=== PATIENT | female | born 1975 | race Caucasian/White ===

== ENCOUNTER → 2016-10-03 | Outpatient (CLI) | payer BC ==
--- NOTE | 2016-10-03 12:56 | KCIC ---
PROCEDURE MR of the right hip HISTORY Right hip pain, worsening. Pain with standing. COMPARISON None FINDINGS No bone lesion or acute fracture. No acute marrow edema. No femoral head osteonecrosis. The no significant joint effusion. No advanced primary osteoarthritis. No evidence of labral tear or paralabral cyst. Diagnostically limited large [id number] coronal survey sequence demonstrates no acute findings at the contralateral hip. The gluteus minimus and gluteus medius tendon attachments are intact. Hamstring tendon attachment intact. Iliopsoas tendon intact. Muscle tissue unremarkable. No acute soft tissue edema or fluid collection. IMPRESSION No significant abnormality. Electronically signed by: Joey Manning MD (Oct 03, 2016 12:55:10)
--- NOTE | 2016-10-03 14:15 | KCIC ---
PROCEDURE Left lower extremity venous Doppler ultrasound. HISTORY Increasing edema and pain in the left extremity COMPARISON None FINDINGS Multiple grayscale, color, duplex spectral analysis waveform images of the left lower extremity veins are submitted. There is normal compression and color flow from the left common femoral to the popliteal veins, normal phasicity. There is normal color flow of the proximal left profunda femoris vein and greater saphenous vein. There is normal color flow of segments of the left calf veins. IMPRESSION There is no evidence of deep venous thrombosis from the left common femoral to popliteal veins. Electronically signed by: Mark Marinelli MD (Oct 03, 2016 14:14:27)
== END | disposition home or self-care (01) ==
LOC: KCIC MRI 12:00
PROVIDERS: ATTEND Nurse Practitioner Family
DX: M25.551 Pain in right hip (principal); R60.0 Localized edema
CPT/HCPCS: 73721; 93971

== ENCOUNTER → 2017-09-11 | Outpatient (CLI) | payer BC | END | disposition home or self-care (01) | LOC: KCIC MRI 09:05 | DX: M75.81 Other shoulder lesions, right shoulder (principal) | CPT/HCPCS: 73221 ==

== ENCOUNTER → 2018-08-04 | Outpatient (CLI) | payer BC ==
--- NOTE | 2018-08-05 09:30 | KCIC ---
MRI of the thoracic spine without contrast 08/04/2018 CLINICAL HISTORY: Mid back pain with decreased range of motion. TECHNIQUE: Unenhanced T1-weighted, T2-weighted and inversion recovery sagittal and T1-weighted and T2-weighted axial images of the thoracic spine were obtained. T2-weighted sagittal images of the cervical, thoracic and lumbar spine were obtained for localization purposes. FINDINGS: Minimal S-shaped curvature of the thoracolumbar spine is seen. Incomplete segmentation is seen involving the T11 and T12 vertebrae, anteriorly. A hypoplastic disc is seen at this level. Degenerative signal changes are seen involving all of the disks of the thoracic spine. The marrow signal of the visualized bony structures is within normal limits. The thoracic spinal cord is normal morphology, position, and signal characteristics. A 1.8 cm rounded high signal intensity lesion is involving the right lobe of the liver on the T2-weighted images. This likely represents a hepatic cyst. On the axial images throughout the thoracic spine, mild degenerative changes are seen consisting of minimal generalized disc bulges and degenerative changes involving the facet joints. These findings do not result in significant central spinal canal or neural foraminal stenosis at any level. No focal disc herniation is seen. IMPRESSION: Mild degenerative changes are seen involving the thoracic spine as outlined above. These findings do not result in significant central spinal canal or neural foraminal stenosis at any level. Electronically signed by: Gabe Beaver MD (08/05/2018 9:25 AM) [facility]-[id number]
== END | disposition home or self-care (01) ==
LOC: KCIC MRI 17:23
PROVIDERS: ATTEND Nurse Practitioner Family
DX: M47.24 Other spondylosis with radiculopathy, thoracic region (principal); K76.89 Other specified diseases of liver
CPT/HCPCS: 72146

== ENCOUNTER → 2018-11-06 | Outpatient (CLI) | payer BC ==
--- NOTE | 2018-11-06 16:24 | KCIC ---
MRI of the cervical spine without contrast 11/06/2018 CLINICAL HISTORY: Bilateral hand weakness with left greater than right radiculopathy. TECHNIQUE: Unenhanced T1-weighted, T2-weighted and inversion recovery sagittal and gradient echo and T2-weighted axial images of the cervical spine were obtained. FINDINGS: Minimal lateral curvature of the cervical spine is seen convex to the left. There is slight reversal of normal cervical lordosis. Degenerative signal changes are seen involving all of the disks of the cervical spine. Loss of height of the C5-6 and C6-7 discs is noted. The marrow signal of the visualized bony structures is within normal limits. No area of abnormal signal intensity is seen involving the cervical spinal cord. At the C2-3 and C3-4 disc spaces there are minimal generalized disc bulges. Degenerative changes are seen involving the uncovertebral and facet joints bilaterally. These findings do not result in significant central spinal canal or neural foraminal stenosis. At the C4-5 disc space there is a minimal generalized disc bulge. Degenerative changes are seen involving the uncovertebral and facet joints, right greater than left. These findings do not result in significant central spinal canal or neural foraminal stenosis. At the C5-6 disc space there is a mild generalized disc bulge. This is eccentric to the right. Degenerative changes are seen involving the uncovertebral and facet joints, right greater than left. These findings when combined do not result in significant central spinal canal stenosis. Mild right neural foraminal stenosis is seen. The left neural foramen is patent. At the C6-7 disc space there is a mild to moderate generalized disc bulge. Degenerative changes are seen involving the uncovertebral and facet joints, left greater than right. These findings efface the anterior CSF without resulting in significant central spinal canal stenosis. Very mild left neural foraminal stenosis is seen. The right neural foramen is patent. At the C7-T1 disc space there is a minimal generalized disc bulge. Degenerative changes are seen involving the facet joints bilaterally. These findings when combined do not result in significant central spinal canal or neural foraminal stenosis. IMPRESSION: Degenerative changes are seen throughout the cervical spine. These findings do not result in significant central spinal canal stenosis at any level. Mild right neural foraminal stenosis is seen at C5-6. Very mild left neural foraminal stenosis is seen at C6-7. Electronically signed by: Gabe Beaver MD (11/06/2018 4:21 PM) [email or web address]
== END | disposition home or self-care (01) ==
LOC: KCIC MRI 15:29
PROVIDERS: ATTEND Psychiatry & Neurology Neurology
DX: M47.22 Other spondylosis with radiculopathy, cervical region (principal); M48.02 Spinal stenosis, cervical region
CPT/HCPCS: 72141

== ENCOUNTER → 2020-04-11 | Outpatient (CLI) | payer BC ==
--- NOTE | 2020-04-11 14:34 | KCIC ---
Study: MR cervical spine without contrast INDICATION: Headache. Cervicalgia. COMPARISON: 11/06/2018 TECHNIQUE: Multiplanar MR imaging of the cervical spine performed without the use of intravenous contrast. FINDINGS: No focal cord signal abnormality. The visualized posterior fossa contents are unremarkable. No acute or aggressive marrow signal abnormality. Redemonstrated straightening of cervical lordosis with mild disc space narrowing at C5-C6 and C6-C7. Unremarkable paraspinous soft tissues. Vertebral artery flow voids are maintained. C1-C2: The region of the foramen magnum is patent. C2-C3: Minimal uncovertebral joint hypertrophy on the right. No advanced facet degeneration or significant disc bulge. The central canal and neural foramina are patent. C3-C4: Mild uncovertebral joint hypertrophy and facet degeneration. No significant disc bulge. Patent central canal and neural foramina. C4-C5: Redemonstrated right more so than left uncovertebral joint hypertrophy, mild left more so than right facet degeneration and mild generalized disc bulge eccentric to the right. The central canal is patent as is the left neural foramen. Unchanged mild right neural foraminal stenosis. C5-C6: Right eccentric disc osteophyte complex, right more so than left uncovertebral joint hypertrophy and mild facet degeneration. The disc osteophyte complex is slightly increased in size with resultant slightly greater contact and flattening of the ventral right hemicord. The central canal remains patent. Similar moderate right neural foraminal stenosis. The left neural foramen is patent. C6-C7: Similar size of a diffuse disc osteophyte complex. Redemonstrated left more so than right uncovertebral joint hypertrophy though slightly worsened on the left. Unchanged mild bilateral facet degeneration. The central canal is patent. Left neural foraminal stenosis is now moderate. The right neural foramen is patent. C7-T1: Normal generalized disc bulge left more so than right facet degeneration that is mild. The central canal is patent as are the neural foramina. T1-T2 through T3-T4: Patent central canal and neural foramina. IMPRESSION: 1. As before, degenerative changes are greatest at C5-C6 and C6-C7. At C5-C6, a right eccentric disc osteophyte complex has slightly increased in size with increasing but still mild right ventral hemicord contact and flattening. No cord signal abnormality and the canal remains patent. At C6-C7, a diffuse disc osteophyte complex has not significantly changed and the central canal is patent. 2. In the setting of uncovertebral joint hypertrophy and facet degeneration, similar moderate neural foraminal stenosis on the right at C5-C6. Neural foraminal stenosis on the left at C6-C7 has slightly progressed and is now moderate as well. Mild degenerative changes elsewhere have not significantly changed. Electronically signed by: HEATHER DOBSON MD (04/11/2020 2:31 PM) [id number]
== END ==
LOC: KCIC MRI 12:26
PROVIDERS: ATTEND Family Medicine
DX: M47.813 Spondylosis without myelopathy or radiculopathy, cervicothoracic region (principal); M48.02 Spinal stenosis, cervical region; M25.78 Osteophyte, vertebrae; M62.48 Contracture of muscle, other site
CPT/HCPCS: 72141

== ENCOUNTER → 2020-05-02 | Outpatient (CLI) | payer BC ==
[~2020-05-02] MED LIST: ACET325T9 PO; IBUP-1060 PO; IOHEXOL 180 MG/ML 10 ML VIAL. ONE; MAGN1TAB PO; PANT40TA77 PO; methylPREDNISolone ACETATE 40 MG/ML VIAL. ONE; methylPREDNISolone ACETATE 80 MG/ML VIAL. ONE
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
== END | disposition home or self-care (01) ==
LOC: PNCL 13:22
PROVIDERS: ATTEND Anesthesiology
DX: M54.2 Cervicalgia (principal); M79.601 Pain in right arm; K21.9 Gastro-esophageal reflux disease without esophagitis; G43.909 Migraine, unspecified, not intractable, without status migrainosus; Z79.899 Other long term (current) drug therapy; Z90.710 Acquired absence of both cervix and uterus; Z98.890 Other specified postprocedural states; Z88.8 Allergy status to other drugs, medicaments and biological substances; Z82.49 Family history of ischemic heart disease and other diseases of the circulatory system; Z83.3 Family history of diabetes mellitus
CPT/HCPCS: 62321; J1030; J1040; Q9965

== ENCOUNTER → 2020-10-17 | Outpatient (CLI) | payer BC ==
[~2020-10-17] MED LIST changes: -IOHEXOL 180 MG/ML 10 ML VIAL. ONE; -methylPREDNISolone ACETATE 40 MG/ML VIAL. ONE; -methylPREDNISolone ACETATE 80 MG/ML VIAL. ONE
--- NOTE | 2020-10-17 14:42 | KCIC ---
EXAMINATION: MRI LEFT SHOULDER WITHOUT IV CONTRAST CLINICAL HISTORY: Chronic bilateral shoulder pain TECHNIQUE: Multiplanar multisequential images obtained through the shoulder without intravenous contr ast. COMPARISON: None FINDINGS: TENDONS: - Supraspinatus: Mild tendinosis without definite tear. - Infraspinatus: Mild tendinosis without tear. - Subscapularis: Within normal limits. - Teres Minor: Within normal limits. - Biceps Tendon: The long head biceps tendon is intact and appropriately located. MUSCLES: Muscle bulk and signal intensity are within normal limits. LABRUM: Posterior and inferior labral degeneration with minimal degenerative tearing in the inferior labrum. GLENOHUMERAL JOINT: - Joint Fluid: No joint effusion or synovitis. - Cartilage: Within normal limits. ACROMIOCLAVICULAR JOINT: Minimal degenerative changes. BONES/MARROW: No evidence of acute fracture or suspicious marrow replacing process. OTHER: Mild thickening of the subacromial/subdeltoid bursa. IMPRESSION: Mild rotator cuff tendinosis without full-thickness tear. Electronically signed by: Ney Stout DO (10/17/2020 2:39 PM) [id number]
--- NOTE | 2020-10-17 14:42 | KCIC ---
EXAMINATION: MRI RIGHT SHOULDER WITHOUT IV CONTRAST CLINICAL HISTORY: Chronic bilateral shoulder pain concerning for rotator cuff pathology TECHNIQUE: Multiplanar multisequential images obtained through the shoulder without intravenous contr ast. COMPARISON: MRI right shoulder 09/11/2017 FINDINGS: TENDONS: - Supraspinatus: Low-grade articular sided fraying near the footplate and moderate tendinosis. No dis crete tear. - Infraspinatus: Mild tendinosis without discrete tear. - Subscapularis: Within normal limits. - Teres Minor: Within normal limits. - Biceps Tendon: The long head biceps tendon is intact and appropriately located. MUSCLES: Muscle bulk and signal intensity are within normal limits. LABRUM: Posterior and inferior labral degeneration without discrete tear. GLENOHUMERAL JOINT: - Joint Fluid: No joint effusion or synovitis. - Cartilage: No full-thickness chondral defect. ACROMIOCLAVICULAR JOINT: Mild hypertrophic degenerative changes. BONES/MARROW: No evidence of acute fracture or suspicious marrow replacing process. Chronic reactive changes in the posterior greater tuberosity. OTHER: Mild thickening of the subacromial/subdeltoid bursa. IMPRESSION: Mildly progressed [id number] rotator cuff tendinosis with low-grade fraying in the supraspinatu s tendon. Electronically signed by: Ney Stout DO (10/17/2020 2:39 PM) [id number]
--- NOTE | 2020-10-17 14:50 | KCIC ---
EXAMINATION: MRI LEFT ELBOW WITHOUT IV CONTRAST CLINICAL HISTORY: Left elbow pain, 3-4 months. Pain is anteromedial. NKI TECHNIQUE: Multiplanar multisequential images obtained through the elbow without intravenous contrast . COMPARISON: None FINDINGS: ULNAR COLLATERAL LIGAMENT: Within normal limits. RADIAL COLLATERAL LIGAMENT: Within normal limits. LATERAL ULNAR COLLATERAL LIGAMENT: Within normal limits. COMMON EXTENSOR TENDON: Mild tendinosis in the common extensor tendon origin. COMMON FLEXOR TENDON: Within normal limits. BICEPS TENDON: Within normal limits. TRICEPS TENDON: Within normal limits. BRACHIALIS TENDON: Within normal limits. ARTICULAR CARTILAGE: No full-thickness chondral defect noted in the ulnohumeral, radiocapitellar, and proximal radioulnar joints. MUSCLES: Muscle bulk and signal intensity within normal limits. BONE/MARROW: No evidence of acute fracture or suspicious marrow replacing process. NERVES: Normal size, signal, and position and the ulnar nerve. Partially visualized radial and median nerves within normal limits. JOINT FLUID: No joint effusion or synovitis. IMPRESSION: Mild tendinosis common extensor tendon origin. Electronically signed by: Ney Stout DO (10/17/2020 2:48 PM) [id number]
== END ==
LOC: KCIC MRI 08:53
PROVIDERS: ATTEND Family Medicine
DX: M19.012 Primary osteoarthritis, left shoulder (principal); M19.011 Primary osteoarthritis, right shoulder; M77.8 Other enthesopathies, not elsewhere classified
CPT/HCPCS: 73221

== ENCOUNTER → 2021-01-09 | Outpatient (CLI) | payer BC ==
--- NOTE | 2021-01-10 08:49 | KCIC ---
EXAMINATION: MRI LEFT LOWER EXTREMITY JOINT WITHOUT INDICATIONS: Left knee pain. Surgery for Jones cyst at age 5. Limited range of motion and left knee, progressive for several months. TECHNIQUE: Multiplanar multisequence MRI of the left knee was obtained without contrast. COMPARISON: None. FINDINGS: MENISCI: The medial and lateral menisci are intact. LIGAMENTS: The anterior and posterior cruciate ligaments are intact. The medial collateral ligament and lateral collateral ligament complex are intact. EXTENSOR MECHANISM: The quadriceps and patellar tendons are intact. Fat pads are normal. Retinacula are intact. BONES AND CARTILAGE: There is superficial and deep cartilage fissuring along the patella centered ar ound the median ridge. Trochlear cartilage is intact. Heterogeneous cartilage of the inner posterior weightbearing lateral tibial plateau suspicious for superficial partial-thickness cartilage loss. Lat eral femoral condyle and medial compartment cartilage is intact. No acute fracture. Marrow signal is normal. OTHER: No joint effusion. There is a small Jones cyst measuring approximately 3.0 x 2.5 x 1.0 cm. Mu scles and remaining tendons are intact. Subcutaneous soft tissues normal. IMPRESSION: 1. No meniscal or ligamentous injury. 2. Patellofemoral and lateral compartment cartilage loss. 3. Small Jones cyst. Electronically signed by: Mai Albarran MD (01/10/2021 8:47 AM) [id number]
== END ==
LOC: KCIC MRI 15:18
PROVIDERS: ATTEND Family Medicine
DX: M71.22 Synovial cyst of popliteal space [Baker], left knee (principal)
CPT/HCPCS: 73721